=== PATIENT | female | born 1985 | race Caucasian/White ===

== ENCOUNTER 2017-03-02 09:20 | Emergency (ER) | payer OTHER, SELFPAY ==
[2017-03-02 10:58] LABS: Bacteria/HPF Rare-Few HPF (None Seen); Hyaline Casts/LPF 0-3 HYALINE CAST LPF (0-3 Hyaline); RBC/HPF 0-3 HPF (0-3); Squamous Epithelial 0-3 HPF (0-3); WBC/HPF 0-3 HPF (0-3)
[2017-03-02 11:05] LABS: Bilirubin Negative (Negative); Blood, Urine Negative (Negative); Glucose, Urine (Dipstick) Negative (Negative); Ketone, Urine Negative (Negative); Nitrite Negative (Negative); Protein, Urine (Dipstick) Negative (Neg-Trace); Urobilinogen 0.2 mg/dL (0.2-1.0)
--- NOTE | 2017-03-02 12:13 | ULT ---
TRANSABDOMINAL AND TRANSVAGINAL PELVIC ULTRASOUND: INDICATION: Spotting with left lower quadrant pelvic pain for 3 weeks. TECHNIQUE: Mayen scale, color Doppler, vascular duplex, and spectral analysis were performed of the pelvis via tr ansabdominal transvaginal approach. FINDINGS: The uterus measures 8 x 3.7 x 4 cm. Endometrial stripe measures 6.6 mm. The right ovary measures 3. 2 x 1.7 x 2.1 cm. The left ovary measures 2.7 x 1.8 x 3.4 cm. An IUD is seen within the endometrial cavity. Normal flow is seen to both ovaries. IMPRESSION: No free fluid is evident. IMPRESSION: 1. Intrauterine device. 2. No acute pelvic abnormality demonstrated. POS: [facility]
== END 2017-03-02 13:04 | disposition home or self-care (01) ==
LOC: ERS 09:20
DX: N93.9 Abnormal uterine and vaginal bleeding, unspecified (principal); E03.9 Hypothyroidism, unspecified; F32.9 Major depressive disorder, single episode, unspecified; F17.200 Nicotine dependence, unspecified, uncomplicated; Z79.899 Other long term (current) drug therapy
CPT/HCPCS: 76856; 81003; 81025